=== PATIENT | female | born 1980 | race Caucasian/White ===

== ENCOUNTER 2023-11-17 13:51 | Inpatient (IN) | payer SELFPAY ==
[~2023-11-17 13:51] MED LIST: Iopamidol-370 76% 500 ML MDV (1 ML CHARGE) ONE
[2023-11-17 14:24] LABS: #Monocytes 1.1 thou/uL (0.11-0.59); #Neutrophils 20.7 thou/uL (1.40-6.50); %Basophils 0.1 % (0.0-1.0); %Lymphocytes 4.4 % (21.0-51.0); %Monocytes 4.9 % (0.0-10.0); Hematocrit 42.6 % (36.0-47.0); Hemoglobin 13.9 g/dL (12.0-16.0); Mean Corpuscular HGB CONC 32.6 g/dL (32.0-36.0); Mean Corpuscular Hemoglobin 28.2 pg (27.0-31.0); Mean Corpuscular Volume 86.4 fl (78.0-98.0); Mean Platelet Volume 9.5 fL (7.4-10.4); Platelet Count 331 10x3/uL (130-400); RBC Distribution Width 15.2 % (11.5-14.5); Red Blood Cell (RBC) Count 4.93 mill/uL (4.20-5.40)
[2023-11-17] MEDS ORDERED: Diazepam 10 MG/2 ML SYRINGE ONE ×3 (14:28→17:31)
[2023-11-17] MEDS ORDERED: Ondansetron PF 4 MG/2 ML Vial ONE (14:36)
[2023-11-17 14:44] LABS: BHCG - Serum Negative (NEGATIVE); Pregs Control Background? CLEAR/WHITE (CLR/WHITE); Pregs Control Bar Appear? YES (CONTROL BAR)
[2023-11-17] MEDS ORDERED: LORazepam 2 MG/ML SYR.(CARPUJECT) ONE (14:45)
[2023-11-17 14:47] LABS: Acetaminophen Less than 10 mcg/mL (10.0-30.0); Alcohol Less than 10.0 mg/dL (Less than 10); Salicylate Less than 8.0 mg/dL (15.0-30.0)
[2023-11-17 14:48] LABS: ALT (SGPT) 15 U/L (8-55); AST (SGOT) 26 U/L (5-34); Albumin 5.2 g/dL (3.5-5.0); Alkaline Phosphatase 18 U/L (40-110); Anion Gap 31 mmol/L (10-20); BUN (Urea Nitrogen) 10 mg/dL (7.0-18.7); Bilirubin, Total 1.1 mg/dL (0.2-1.2); Calc. Creatinine Clearance 0 mL/min (70-130); Calcium 10.4 mg/dL (7.8-10.44); Carbon Dioxide 10 mmol/L (22-29); Chloride 98 mmol/L (98-107); Estimated GFR 53; Globulin 3.8 g/dL (2.4-3.5); Glucose 143 mg/dL (70-105); Potassium 4.3 mmol/L (3.5-5.1); Sodium 135 mmol/L (136-145)
[2023-11-17 15:06] LABS: Magnesium 1.6 mg/dL (1.6-2.6)
[2023-11-17 15:11] LABS: Troponin I Less than 0.010 ng/mL (< 0.028)
[2023-11-17] MEDS ORDERED: Multivitamins, Adult 10 ML, Thiamine HCl 100 MG, Folic Acid 1 MG in Dextrose 5 %-0.45 %... IV SCH (15:15)
[2023-11-17 15:31] LABS: Lipase 24 U/L (8-78); Phosphorus 3.9 mg/dL (2.3-4.7)
[2023-11-17 16:01] LABS: Base Excess -13.4 mEq/L (-2.0 to +3.0); Chloride (VBG) 99 mmol/L (98-106); Hematocrit-VBG 40 % (36.0-47.0); Hemoglobin (Hb) 13.7 g/dL (11.7-15.5); Potassium (VBG) 3.98 mmol/L (3.70-5.30); Sodium 136 mmol/L (133-146); pH (venous) 7.307 (7.32-7.43)
[2023-11-17 16:03] LABS: Actual Bicarbonate (HCO3v) 10.8 mEq/L (22-28)
[2023-11-17] MEDS ORDERED: Pantoprazole 40 MG VIAL ONE (16:53)
[2023-11-17] MEDS ORDERED: Lorazepam 1 MG TAB PO PRN (16:55)
[2023-11-17] MEDS ORDERED: Ondansetron ODT 4 MG TAB PO PRN ×2 (16:55)
[2023-11-17] MEDS ORDERED: Lorazepam 2 MG/ML VIAL IM PRN (16:55)
[2023-11-17] MEDS ORDERED: Magnesium 2 GM/50 ML(in water) 2 GM in Premix 1 BAG IVPB SCH (17:00)
[2023-11-17] MEDS ORDERED: Electrolyte Replacement Protocol 1 EACH FS SCH (17:00)
[2023-11-17] MEDS ORDERED: Folic Acid 1 MG TAB PO SCH (18:00)
[2023-11-17] MEDS ORDERED: Electrolyte Replacement Protocol FS PRN (18:00)
[2023-11-17] MEDS ORDERED: Multivit, Therapeutic 1 TAB PO SCH (18:00)
[2023-11-17] MEDS: Lorazepam 1 MG TAB PO SCH ×2 (19:21→22:10)
[2023-11-17] MEDS: Thiamine HCl 200 MG/2 ML VIAL SLOW IVP SCH (19:23)
[2023-11-17 19:38] VITALS: BMI 24.0
[2023-11-17] MEDS: Dextrose 5 % And 0.9 % NaCl 1,000 ML IV SCH (22:10)
[2023-11-17] MEDS: Ondansetron PF 4 MG/2 ML Vial IVP PRN (23:17)
[2023-11-18] MEDS: Dextrose 5 % And 0.9 % NaCl 1,000 ML IV SCH ×4 (00:39→20:32)
[2023-11-18] MEDS: Lorazepam 1 MG TAB PO SCH ×4 (04:09→22:38)
[2023-11-18 05:30] LABS: #Monocytes 1.5 thou/uL (0.11-0.59); #Neutrophils 12.5 thou/uL (1.40-6.50); %Basophils 0.1 % (0.0-1.0); %Lymphocytes 10.2 % (21.0-51.0); %Monocytes 9.2 % (0.0-10.0); %Neutrophils 79.7 % (42.0-75.0); Hematocrit 35.3 % (36.0-47.0); Hemoglobin 11.6 g/dL (12.0-16.0); Mean Corpuscular HGB CONC 32.9 g/dL (32.0-36.0); Mean Corpuscular Hemoglobin 27.8 pg (27.0-31.0); Mean Corpuscular Volume 84.4 fl (78.0-98.0); Mean Platelet Volume 10.1 fL (7.4-10.4); Platelet Count 237 10x3/uL (130-400); RBC Distribution Width 15.4 % (11.5-14.5); Red Blood Cell (RBC) Count 4.18 mill/uL (4.20-5.40); White Blood Cell (WBC) Count 15.7 10x3/uL (4.8-10.8)
[2023-11-18 07:37] LABS: ALT (SGPT) 12 U/L (8-55); AST (SGOT) 21 U/L (5-34); Albumin 3.9 g/dL (3.5-5.0); Alkaline Phosphatase 13 U/L (40-110); Anion Gap 12 mmol/L (10-20); BUN (Urea Nitrogen) 5 mg/dL (7.0-18.7); Bilirubin, Total 0.6 mg/dL (0.2-1.2); Calc. Creatinine Clearance 85 mL/min (70-130); Calcium 8.6 mg/dL (7.8-10.44); Carbon Dioxide 17 mmol/L (22-29); Chloride 107 mmol/L (98-107); Estimated GFR 90; Globulin 2.7 g/dL (2.4-3.5); Glucose 122 mg/dL (70-105); Magnesium 1.9 mg/dL (1.6-2.6); Potassium 3.2 mmol/L (3.5-5.1); Protein, Total 6.6 g/dL (6.0-8.3); Sodium 133 mmol/L (136-145)
[2023-11-18] MEDS ORDERED: Potassium Chloride 20 MEQ TAB PO SCH (08:00)
[2023-11-18] MEDS ORDERED: Magnesium 2 GM/50 ML(in water) 2 GM in Premix 1 BAG IVPB SCH (08:00)
[2023-11-18] MEDS ORDERED: cloNIDine 0.1mg/24 Hour PATCH TD SCH (09:00)
[2023-11-18] MEDS ORDERED: Pantoprazole 40 MG VIAL IVP SCH (09:00)
[2023-11-18] MEDS: Sodium Bicarbonate Tab 325 MG TAB PO SCH ×2 (09:09→20:31)
[2023-11-18] MEDS: Multivit, Therapeutic 1 TAB PO SCH (09:09)
[2023-11-18] MEDS: Folic Acid 1 MG TAB PO SCH (09:09)
[2023-11-18] MEDS ORDERED: Lidocaine 2% Viscous Solution 10 ML, Aluminum & Magnesium Hydroxide 30 ML SSW SCH (11:15)
[2023-11-18] MEDS: Thiamine HCl 200 MG/2 ML VIAL SLOW IVP SCH (16:19)
[2023-11-18] MEDS ORDERED: Lorazepam 1 MG TAB PO PRN (16:55)
[2023-11-18] MEDS: Ondansetron PF 4 MG/2 ML Vial IVP PRN (20:30)
[2023-11-18] MEDS: Acetaminophen 325 MG TAB PO PRN (20:32)
[2023-11-18] MEDS ORDERED: diphenhydrAMINE 25 MG CAP PO SCH (21:00)
[2023-11-19] MEDS: Lorazepam 1 MG TAB PO SCH ×2 (04:01→11:10)
[2023-11-19] MEDS: Acetaminophen 325 MG TAB PO PRN ×2 (04:01→08:31)
[2023-11-19] MEDS: Dextrose 5 % And 0.9 % NaCl 1,000 ML IV SCH (04:02)
[2023-11-19 04:26] LABS: #Monocytes 0.9 thou/uL (0.11-0.59); #Neutrophils 4.4 thou/uL (1.40-6.50); %Basophils 0.3 % (0.0-1.0); %Eosinophils 0.5 % (0.0-10.0); %Lymphocytes 30.3 % (21.0-51.0); %Monocytes 11.8 % (0.0-10.0); %Neutrophils 56.6 % (42.0-75.0); Hematocrit 33.2 % (36.0-47.0); Hemoglobin 10.8 g/dL (12.0-16.0); Mean Corpuscular HGB CONC 32.5 g/dL (32.0-36.0); Mean Corpuscular Hemoglobin 27.7 pg (27.0-31.0); Mean Corpuscular Volume 85.1 fl (78.0-98.0); Mean Platelet Volume 9.4 fL (7.4-10.4); Platelet Count 168 10x3/uL (130-400); RBC Distribution Width 15.4 % (11.5-14.5); White Blood Cell (WBC) Count 7.8 10x3/uL (4.8-10.8)
[2023-11-19 05:23] LABS: Anion Gap 11 mmol/L (10-20); BUN (Urea Nitrogen) Less than 4 mg/dL (7.0-18.7); Calc. Creatinine Clearance 112 mL/min (70-130); Carbon Dioxide 22 mmol/L (22-29); Chloride 108 mmol/L (98-107); Critical Call Chemistry NUR.EM12@0523; Estimated GFR 113; Glucose 107 mg/dL (70-105); Magnesium 1.7 mg/dL (1.6-2.6); Potassium 3.1 mmol/L (3.5-5.1); Sodium 138 mmol/L (136-145)
[2023-11-19] MEDS: PHOS-NAK 1 PKT PACK PO SCH ×4 (06:19→17:19)
[2023-11-19] MEDS ORDERED: Potassium Chloride 20 MEQ TAB PO SCH (08:00)
[2023-11-19] MEDS ORDERED: Magnesium 2 GM/50 ML(in water) 2 GM in Premix 1 BAG IVPB SCH (08:00)
[2023-11-19] MEDS: Multivit, Therapeutic 1 TAB PO SCH (08:31)
[2023-11-19] MEDS: Folic Acid 1 MG TAB PO SCH (08:31)
[2023-11-19] MEDS ORDERED: Potassium Phosphate 30 MMOL in Sodium Chloride 0.9% 250 ML 250 ML IVPB SCH (09:15)
[2023-11-19 12:03] LABS: Anion Gap 13 mmol/L (10-20); BUN (Urea Nitrogen) Less than 4 mg/dL (7.0-18.7); Calc. Creatinine Clearance 119 mL/min (70-130); Calcium 8.6 mg/dL (7.8-10.44); Carbon Dioxide 23 mmol/L (22-29); Chloride 108 mmol/L (98-107); Estimated GFR 115; Glucose 99 mg/dL (70-105); Magnesium 2.5 mg/dL (1.6-2.6); Phosphorus 2.1 mg/dL (2.3-4.7); Sodium 140 mmol/L (136-145)
[2023-11-19 16:20] VITALS: BP 125/80; TEMP 97.1
[2023-11-19] MEDS ORDERED: Lorazepam 1 MG TAB PO PRN (16:55)
[2023-11-19] MEDS ORDERED: Lorazepam 0.5 MG TAB PO SCH (17:00)
[2023-11-19] MEDS: Thiamine HCl 200 MG/2 ML VIAL SLOW IVP SCH (17:19)
[2023-11-20] MEDS ORDERED: Lorazepam 0.5 MG TAB PO PRN (16:55)
[2023-11-20] MEDS ORDERED: Thiamine 100 MG TAB PO SCH (17:00)
== END 2023-11-19 18:08 | disposition home or self-care (01) | DRG 897 ==
LOC: ERS 13:51 → 2NO 16:44
PROVIDERS: ADMIT Family Medicine; ATTEND Family Medicine
PROC: 4A043R1 Measurement of Venous Saturation, Peripheral, Percutaneous Approach (ICD-10-PCS; principal; 2023-11-17)
DX: F10.239 Alcohol dependence with withdrawal, unspecified (principal); E87.20 Acidosis, unspecified; F41.9 Anxiety disorder, unspecified; F32.A Depression, unspecified; F17.210 Nicotine dependence, cigarettes, uncomplicated; Z79.899 Other long term (current) drug therapy
CPT/HCPCS: 36415; 74177; 80048; 80053; 80307; 82805; 83605; 83690; 83735; 84100; 84484; 84703; 85025; 93005; C9113; J1790; J2060; J2405; J3360; J3411; J3475; J7042; J7050; Q9967